=== PATIENT | male | born 1970 | race African-American/Black ===

== ENCOUNTER 2016-10-04 10:27 | Emergency (ER) | payer BC ==
[~2016-10-04] VITALS: Ht 185.4 cm; Wt 78.0 kg
[~2016-10-04 10:27] MED LIST: GABA300C2 PO; PANT40TA PO; ZESTRIL40 MG PO
== END 2016-10-04 12:02 | disposition home or self-care (01) ==
LOC: ED 10:27
DX: S16.1XXA Strain of muscle, fascia and tendon at neck level, initial encounter (principal); S29.012A Strain of muscle and tendon of back wall of thorax, initial encounter; M54.5 Low back pain
CPT/HCPCS: 99283; J1885; J2930

== ENCOUNTER 2016-10-28 08:39 | Emergency (ER) | payer BC ==
[~2016-10-28] VITALS: Ht 165.1 cm; Wt 78.0 kg
== END 2016-10-28 09:45 | disposition home or self-care (01) ==
LOC: ED 08:39
DX: M54.5 Low back pain (principal); G89.29 Other chronic pain; R03.0 Elevated blood-pressure reading, without diagnosis of hypertension
CPT/HCPCS: 99281

== ENCOUNTER 2018-10-03 10:23 | Emergency (ER) | payer OTHER ==
[~2018-10-03] VITALS: Ht 165.1 cm; Wt 86.2 kg
[2018-10-03] MEDS ORDERED: DULOXETINE HCL30 MG PO (11:05)
[2018-10-03] MEDS ORDERED: LIPITOR10 MG PO (11:06)
[2018-10-03] MEDS ORDERED: AMLO2.5T PO (11:06)
[2018-10-03] MEDS ORDERED: PHENTERMINE37.5 MG PO (11:07)
[2018-10-03] MEDS ORDERED: HYDR10TA47A PO (11:08)
[2018-10-03 11:25] VITALS: BP 127/80; TEMP 98
== END 2018-10-03 11:25 | disposition home or self-care (01) ==
LOC: ED 10:23
DX: G25.81 Restless legs syndrome (principal)
CPT/HCPCS: 96372; 99282; J1885